=== PATIENT | male | born 1990 | race African-American/Black ===

== ENCOUNTER 2017-11-28 15:01 | Inpatient (IN) | payer OTHER ==
[2017-11-28] MEDS ORDERED: LORazepam 1 MG TAB PO (15:27)
[2017-11-28 15:44] LABS: HEMATOCRIT 43.1 % (42.0-52.0); MEAN CORPUSCULAR HEMOGLOBIN 28.4 pg (27.0-33.0); MEAN CORPUSCULAR HGB CONC 32.5 g/dl (32.0-36.5); MEAN CORPUSCULAR VOLUME 87.4 fl (80.0-96.0); PLATELET COUNT, AUTOMATED 172 10^3/uL (150-450); RED BLOOD COUNT 4.93 10^6/uL (4.30-6.10); RED CELL DISTRIBUTION WIDTH 12.4 % (11.5-14.5)
[2017-11-28 16:16] LABS: AMPHETAMINES LEVEL URINE NEGATIVE (NEGATIVE); BARBITURATES URINE NEGATIVE (NEGATIVE); BENZODIAZEPINES URINE NEGATIVE (NEGATIVE); CANNABINOIDS URINE NEGATIVE (NEGATIVE); COCAINE METABOLITE URINE NEGATIVE (NEGATIVE); METHADONE URINE NEGATIVE (NEGATIVE); OPIATES URINE NEGATIVE (NEGATIVE); PHENCYCLIDINE URINE NEGATIVE (NEGATIVE)
[2017-11-28 16:28] LABS: ACETAMINOPHEN LEVEL < 2.0 UG/ML (10.0-30.0); ALBUMIN 3.9 GM/DL (3.2-5.2); ALBUMIN/GLOBULIN RATIO 1.26 (1.00-1.93); ALKALINE PHOSPHATASE 55 U/L (45-117); ALT/SGPT 27 U/L (12-78); ANION GAP 6 MEQ/L (8-16); AST/SGOT 23 U/L (7-37); BILIRUBIN,DIRECT 0.1 MG/DL (0.0-0.2); BILIRUBIN,TOTAL 0.3 MG/DL (0.2-1.0); BLOOD UREA NITROGEN 13 MG/DL (7-18); CALCIUM LEVEL 8.5 MG/DL (8.5-10.1); CARBON DIOXIDE LEVEL 28 MEQ/L (21-32); CHLORIDE LEVEL 108 MEQ/L (98-107); CREATININE FOR GFR 0.96 MG/DL (0.70-1.30); GLOMERULAR FILTRATION RATE > 60.0 (>60); GLUCOSE, FASTING 88 MG/DL (70-100); SALICYLATE LEVEL < 1.7 MG/DL (5.0-30.0); SODIUM LEVEL 142 MEQ/L (136-145)
[2017-11-28 16:29] LABS: ETHYL ALCOHOL (ETHANOL) < 0.003 % (0.000-0.010)
[2017-11-28] MEDS ORDERED: MOM 30ML SUSPENSION UDC PO (17:45)
[2017-11-28] MEDS ORDERED: MAALOX 30 ML SUSP *UDC PO (17:45)
[2017-11-28] MEDS: traZODone 50 MG TAB PO (21:10)
[2017-11-29] MEDS: ACETAMINOPHEN TAB 650MG DOSE (2X325MG) PO (08:34)
[2017-11-29] MEDS: IBUPROFEN 800 MG TAB PO (10:59)
[2017-11-29] MEDS: OLANZapine ORAL DISINTEGRATING TAB 5MG PO (22:46)
[2017-11-30] MEDS: traZODone 50 MG TAB PO (22:17)
[2017-12-01] MEDS: traZODone 50 MG TAB PO (21:55)
[2017-12-01] MEDS: ACETAMINOPHEN TAB 650MG DOSE (2X325MG) PO (22:09)
[2017-12-01] MEDS: OLANZapine ORAL DISINTEGRATING TAB 5MG PO (23:30)
[2017-12-02] MEDS: SERTRALINE HCL 50 MG TAB PO (09:31)
[2017-12-02] MEDS: traZODone 25MG PER 1/2 TABLET PO (21:34)
[2017-12-02] MEDS: OLANZapine ORAL DISINTEGRATING TAB 5MG PO (23:32)
[2017-12-03] MEDS ORDERED: SERTRALINE HCL 25 MG TABLET PO (09:00)
[2017-12-03 11:01] LABS: HEMATOCRIT 47.4 % (42.0-52.0); HEMOGLOBIN 15.3 g/dl (14.0-18.0); MEAN CORPUSCULAR HEMOGLOBIN 28.2 pg (27.0-33.0); MEAN CORPUSCULAR HGB CONC 32.3 g/dl (32.0-36.5); MEAN CORPUSCULAR VOLUME 87.5 fl (80.0-96.0); PLATELET COUNT, AUTOMATED 179 10^3/uL (150-450); RED BLOOD COUNT 5.42 10^6/uL (4.30-6.10); RED CELL DISTRIBUTION WIDTH 12.6 % (11.5-14.5); WHITE BLOOD COUNT 7.2 10^3/uL (4.0-10.0)
[2017-12-03 11:35] LABS: ALBUMIN 3.9 GM/DL (3.2-5.2); ALBUMIN/GLOBULIN RATIO 1.26 (1.00-1.93); ALKALINE PHOSPHATASE 55 U/L (45-117); ALT/SGPT 36 U/L (12-78); ANION GAP 6 MEQ/L (8-16); AST/SGOT 21 U/L (7-37); BILIRUBIN,TOTAL 0.5 MG/DL (0.2-1.0); BLOOD UREA NITROGEN 10 MG/DL (7-18); CALCIUM LEVEL 8.9 MG/DL (8.5-10.1); CARBON DIOXIDE LEVEL 30 MEQ/L (21-32); CHLORIDE LEVEL 108 MEQ/L (98-107); CPK CREATINE PHOSPHOKINASE 151 U/L (39-308); CREATININE FOR GFR 0.94 MG/DL (0.70-1.30); GLOMERULAR FILTRATION RATE > 60.0 (>60); GLUCOSE, FASTING 88 MG/DL (70-100); MB/CK RELATIVE INDEX 0.66 (< OR =4); POTASSIUM SERUM 3.9 MEQ/L (3.5-5.1); SODIUM LEVEL 144 MEQ/L (136-145); TROPONIN I 0.09 NG/ML (< 0.10)
[2017-12-03] MEDS: SERTRALINE HCL 25 MG TABLET PO (20:17)
[2017-12-04] MEDS: ACETAMINOPHEN TAB 650MG DOSE (2X325MG) PO ×2 (06:06→20:47)
[2017-12-04] MEDS: SERTRALINE HCL 25 MG TABLET PO (20:46)
[2017-12-04] MEDS: hydrOXYzine 25 MG TAB PO (20:46)
[2017-12-05] MEDS: SERTRALINE HCL 25 MG TABLET PO (21:00)
[2017-12-06] MEDS: SERTRALINE HCL 25 MG TABLET PO (21:02)
[2017-12-06] MEDS: hydrOXYzine 25 MG TAB PO (21:02)
[2017-12-07] MEDS: SERTRALINE HCL 25 MG TABLET PO (22:07)
[2017-12-07] MEDS: hydrOXYzine 25 MG TAB PO (23:13)
[2017-12-08] MEDS: SERTRALINE HCL 25 MG TABLET PO (17:24)
[2017-12-08] MEDS: MIRTAZAPINE 15 MG TAB PO ×2 (21:00→23:37)
[2017-12-09] MEDS: SERTRALINE HCL 25 MG TABLET PO (08:46)
== END 2017-12-09 13:35 | disposition home or self-care (01) | DRG 885 ==
LOC: M ED 15:01 → M ED INP 17:33 → M PSY 18:42
DX: F33.2 Major depressive disorder, recurrent severe without psychotic features (principal); R42 Dizziness and giddiness; R07.9 Chest pain, unspecified; Z56.4 Discord with boss and workmates; Z62.810 Personal history of physical and sexual abuse in childhood; Z81.8 Family history of other mental and behavioral disorders

== ENCOUNTER 2018-02-13 01:41 | Inpatient (IN) | payer OTHER ==
[2018-02-13 02:21] LABS: HEMOGLOBIN 15.4 g/dl (13.5-17.5); MEAN CORPUSCULAR HEMOGLOBIN 28.9 pg (27.0-33.0); MEAN CORPUSCULAR HGB CONC 32.8 g/dl (32.0-36.5); MEAN CORPUSCULAR VOLUME 88.3 fl (80.0-96.0); PLATELET COUNT, AUTOMATED 173 10^3/uL (150-450); RED BLOOD COUNT 5.32 10^6/uL (4.30-6.10); RED CELL DISTRIBUTION WIDTH 12.7 % (11.5-14.5)
[2018-02-13 02:46] LABS: AMPHETAMINES LEVEL URINE NEGATIVE (NEGATIVE); BARBITURATES URINE NEGATIVE (NEGATIVE); BENZODIAZEPINES URINE NEGATIVE (NEGATIVE); CANNABINOIDS URINE NEGATIVE (NEGATIVE); COCAINE METABOLITE URINE NEGATIVE (NEGATIVE); METHADONE URINE NEGATIVE (NEGATIVE); OPIATES URINE NEGATIVE (NEGATIVE); PHENCYCLIDINE URINE NEGATIVE (NEGATIVE)
[2018-02-13 02:55] LABS: ALBUMIN/GLOBULIN RATIO 1.18 (1.00-1.93); ALKALINE PHOSPHATASE 57 U/L (45-117); ALT/SGPT 27 U/L (12-78); ANION GAP 5 MEQ/L (8-16); AST/SGOT 17 U/L (7-37); BILIRUBIN,DIRECT 0.2 MG/DL (0.0-0.2); BILIRUBIN,TOTAL 0.7 MG/DL (0.2-1.0); BLOOD UREA NITROGEN 11 MG/DL (7-18); CALCIUM LEVEL 8.6 MG/DL (8.5-10.1); CARBON DIOXIDE LEVEL 30 MEQ/L (21-32); CHLORIDE LEVEL 107 MEQ/L (98-107); CREATININE FOR GFR 1.03 MG/DL (0.70-1.30); GLOMERULAR FILTRATION RATE > 60.0 (>60); GLUCOSE, FASTING 79 MG/DL (70-100); POTASSIUM SERUM 4.3 MEQ/L (3.5-5.1); SALICYLATE LEVEL < 1.7 MG/DL (5.0-30.0); SODIUM LEVEL 142 MEQ/L (136-145); TOTAL PROTEIN 7.4 GM/DL (6.4-8.2)
[2018-02-13 03:00] LABS: ACETAMINOPHEN LEVEL < 2.0 UG/ML (10.0-30.0); ETHYL ALCOHOL (ETHANOL) < 0.003 % (0.000-0.010)
[2018-02-13] MEDS ORDERED: traZODone 50 MG TAB PO (03:30)
[2018-02-13] MEDS ORDERED: MOM 30ML SUSPENSION UDC PO (03:30)
[2018-02-13] MEDS: CitaloPRAM (CeleXA) 20 MG TAB PO (08:55)
[2018-02-13] MEDS: MAALOX 30 ML SUSP *UDC PO (09:02)
[2018-02-13 09:15] LABS: HEMATOCRIT 47.6 % (42.0-52.0); HEMOGLOBIN 15.6 g/dl (13.5-17.5); MEAN CORPUSCULAR HEMOGLOBIN 28.9 pg (27.0-33.0); MEAN CORPUSCULAR HGB CONC 32.8 g/dl (32.0-36.5); MEAN CORPUSCULAR VOLUME 88.1 fl (80.0-96.0); PLATELET COUNT, AUTOMATED 179 10^3/uL (150-450); RED CELL DISTRIBUTION WIDTH 12.8 % (11.5-14.5); WHITE BLOOD COUNT 8.3 10^3/uL (4.0-10.0)
[2018-02-13 09:46] LABS: CK-MB VALUE MASS 1.6 NG/ML (<3.6); CPK CREATINE PHOSPHOKINASE 425 U/L (39-308); MB/CK RELATIVE INDEX 0.37 (< OR =4); TROPONIN I 0.14 NG/ML (< 0.10)
[2018-02-13] MEDS: OMEPRAZOLE 20 MG CAP PO (09:56)
[2018-02-13 10:00] LABS: ALBUMIN 4.1 GM/DL (3.2-5.2); ALBUMIN/GLOBULIN RATIO 1.28 (1.00-1.93); ALKALINE PHOSPHATASE 60 U/L (45-117); ALT/SGPT 28 U/L (12-78); ANION GAP 7 MEQ/L (8-16); AST/SGOT 17 U/L (7-37); BILIRUBIN,TOTAL 0.4 MG/DL (0.2-1.0); BLOOD UREA NITROGEN 10 MG/DL (7-18); CARBON DIOXIDE LEVEL 30 MEQ/L (21-32); CHLORIDE LEVEL 106 MEQ/L (98-107); CREATININE FOR GFR 0.99 MG/DL (0.70-1.30); GLOMERULAR FILTRATION RATE > 60.0 (>60); GLUCOSE, FASTING 84 MG/DL (70-100); POTASSIUM SERUM 4.4 MEQ/L (3.5-5.1); SODIUM LEVEL 143 MEQ/L (136-145); TOTAL PROTEIN 7.3 GM/DL (6.4-8.2)
[2018-02-13 16:45] LABS: CPK CREATINE PHOSPHOKINASE 399 U/L (39-308); TROPONIN I 0.11 NG/ML (< 0.10)
[2018-02-13 16:46] LABS: CK-MB VALUE MASS 1.5 NG/ML (<3.6); MB/CK RELATIVE INDEX 0.37 (< OR =4)
[2018-02-13] MEDS: MIRTAZAPINE 7.5MG PER 1/2 TABLET PO (20:29)
[2018-02-14 01:33] LABS: CPK CREATINE PHOSPHOKINASE 410 U/L (39-308); TROPONIN I 0.11 NG/ML (< 0.10)
[2018-02-14 01:34] LABS: CK-MB VALUE MASS 1.5 NG/ML (<3.6); MB/CK RELATIVE INDEX 0.36 (< OR =4)
[2018-02-14] MEDS: OMEPRAZOLE 20 MG CAP PO (08:00)
[2018-02-14] MEDS: CitaloPRAM (CeleXA) 20 MG TAB PO (08:00)
[2018-02-14] MEDS: MIRTAZAPINE 7.5MG PER 1/2 TABLET PO (21:25)
[2018-02-14] MEDS: DOXEPIN 25 MG CAP PO (21:26)
[2018-02-15] MEDS: CitaloPRAM (CeleXA) 20 MG TAB PO (08:22)
[2018-02-15] MEDS: OMEPRAZOLE 20 MG CAP PO (08:22)
[2018-02-15] MEDS: OLANZapine 5 MG TAB PO (16:36)
[2018-02-15] MEDS: MIRTAZAPINE 7.5MG PER 1/2 TABLET PO ×2 (21:00→23:06)
[2018-02-15] MEDS: DOXEPIN 25 MG CAP PO ×2 (21:00→23:06)
[2018-02-16] MEDS: CitaloPRAM (CeleXA) 20 MG TAB PO (08:44)
[2018-02-16] MEDS: OMEPRAZOLE 20 MG CAP PO (08:44)
[2018-02-16] MEDS: DOXEPIN 25 MG CAP PO (20:08)
[2018-02-16] MEDS: MIRTAZAPINE 7.5MG PER 1/2 TABLET PO (20:08)
[2018-02-17] MEDS: OLANZapine 5 MG TAB PO (02:37)
[2018-02-17] MEDS: OMEPRAZOLE 20 MG CAP PO (08:59)
[2018-02-17] MEDS: CitaloPRAM (CeleXA) 20 MG TAB PO (08:59)
[2018-02-17] MEDS: ARIPiprazole 15 MG TAB (AbiLIFY) PO ×2 (09:00→21:57)
[2018-02-17] MEDS: PILL CRUSHER/CUTTER 1 EACH XX (09:00)
[2018-02-17 14:11] LABS: ALBUMIN 3.8 GM/DL (3.2-5.2); ALBUMIN/GLOBULIN RATIO 1.12 (1.00-1.93); ALKALINE PHOSPHATASE 63 U/L (45-117); ALT/SGPT 37 U/L (12-78); ANION GAP 7 MEQ/L (8-16); AST/SGOT 27 U/L (7-37); BILIRUBIN,TOTAL 0.4 MG/DL (0.2-1.0); BLOOD UREA NITROGEN 10 MG/DL (7-18); CALCIUM LEVEL 8.9 MG/DL (8.5-10.1); CARBON DIOXIDE LEVEL 27 MEQ/L (21-32); CHLORIDE LEVEL 108 MEQ/L (98-107); CREATININE FOR GFR 1.09 MG/DL (0.70-1.30); GLOMERULAR FILTRATION RATE > 60.0 (>60); GLUCOSE, FASTING 135 MG/DL (70-100); SODIUM LEVEL 142 MEQ/L (136-145); TOTAL PROTEIN 7.2 GM/DL (6.4-8.2)
[2018-02-17] MEDS: ACETAMINOPHEN TAB 650MG DOSE (2X325MG) PO (17:09)
[2018-02-17] MEDS: DOXEPIN 25 MG CAP PO (22:28)
[2018-02-18] MEDS: OMEPRAZOLE 20 MG CAP PO (08:24)
[2018-02-18] MEDS: PILL CRUSHER/CUTTER 1 EACH XX ×2 (08:25→20:34)
[2018-02-18] MEDS: ARIPiprazole 15 MG TAB (AbiLIFY) PO ×2 (08:25→20:34)
[2018-02-18] MEDS: DOXEPIN 25 MG CAP PO (20:33)
[2018-02-19] MEDS: OMEPRAZOLE 20 MG CAP PO (08:10)
[2018-02-19] MEDS: ARIPiprazole 15 MG TAB (AbiLIFY) PO (08:10)
== END 2018-02-19 13:40 | disposition home or self-care (01) | DRG 885 ==
LOC: M ED 01:41 → M ED INP 03:17 → M PSY 03:56
DX: F22 Delusional disorders (principal); F41.1 Generalized anxiety disorder; F32.9 Major depressive disorder, single episode, unspecified; R07.89 Other chest pain; G47.00 Insomnia, unspecified; Z79.899 Other long term (current) drug therapy; Z81.1 Family history of alcohol abuse and dependence; Z81.8 Family history of other mental and behavioral disorders

== ENCOUNTER 2018-08-24 18:32 | Emergency (ER) | payer OTHER ==
[2018-08-24] MEDS: diazePAM 5 MG TAB PO (20:09)
[2018-08-24] MEDS: KETOROLAC 60 MG/2 ML VIAL (J1885) IM (20:09)
== END 2018-08-24 20:37 | disposition home or self-care (01) ==
LOC: M ED 18:32
DX: S16.1XXA Strain of muscle, fascia and tendon at neck level, initial encounter (principal); V49.49XA Driver injured in collision with other motor vehicles in traffic accident, initial encounter; Y92.410 Unspecified street and highway as the place of occurrence of the external cause; F33.9 Major depressive disorder, recurrent, unspecified; F41.9 Anxiety disorder, unspecified; Z79.899 Other long term (current) drug therapy
CPT/HCPCS: J1885

== ENCOUNTER 2018-11-04 00:27 | Emergency (ER) | payer OTHER ==
[~2018-11-04] VITALS: Ht 190.5 cm; Wt 120.9 kg
[~2018-11-04 00:27] MED LIST: ARIP15TAB PO; DOXE75CA2 PO; ESCI10TA2; KETO10TAB PO; MIRT15TA3 PO; SERT25TA PO; SERT50TA PO; TRAZ-160; TRAZ-160 PO; VALI5TAB PO
[2018-11-04] MEDS ORDERED: NS 1,000 ML IV ONE (00:45)
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
[2018-11-04 01:31] LABS: HEMATOCRIT 46.1 % (42.0-52.0); HEMOGLOBIN 14.9 g/dl (13.5-17.5); MEAN CORPUSCULAR HEMOGLOBIN 28.1 pg (27.0-33.0); MEAN CORPUSCULAR HGB CONC 32.3 g/dl (32.0-36.5); PLATELET COUNT, AUTOMATED 180 10^3/uL (150-450); WHITE BLOOD COUNT 11.8 10^3/uL (4.0-10.0)
[2018-11-04 01:57] LABS: ATYPICAL LYMPH 6 % (0-5); EOSINOPHILS 1 % (0-5); LYMPHOCYTES 42 % (16-52); MONOCYTES 6 % (0-8); NEUTROPHILS 45 % (35-75)
[2018-11-04 01:58] LABS: PLATELET ESTIMATE NORMAL (NORMAL)
[2018-11-04 02:16] LABS: BLOOD UREA NITROGEN 15 MG/DL (7-18); CALCIUM LEVEL 8.5 MG/DL (8.5-10.1); CARBON DIOXIDE LEVEL 26 MEQ/L (21-32); CHLORIDE LEVEL 107 MEQ/L (98-107); CREATININE FOR GFR 1.13 MG/DL (0.70-1.30); GLOMERULAR FILTRATION RATE > 60.0 (>60); GLUCOSE, FASTING 93 MG/DL (70-100); POTASSIUM SERUM 4.2 MEQ/L (3.5-5.1); SODIUM LEVEL 141 MEQ/L (136-145)
[2018-11-04 02:45] VITALS: BP 140/103
== END 2018-11-04 02:47 | disposition home or self-care (01) ==
LOC: EDBD 00:27 → M ED 00:27
DX: S09.90XA Unspecified injury of head, initial encounter (principal); V47.5XXA Car driver injured in collision with fixed or stationary object in traffic accident, initial encounter; Y92.410 Unspecified street and highway as the place of occurrence of the external cause; Z79.899 Other long term (current) drug therapy